=== PATIENT | female | born 2000 | race Hispanic/Latino ===

== ENCOUNTER 2022-10-01 00:02 | Emergency (ER) | payer BC ==
[~2022-10-01] VITALS: Ht 165.1 cm; Wt 83.9 kg
[2022-10-01] MEDS ORDERED: TRAMADOL HCL 50 MG TAB PO STA (00:11)
[2022-10-01] MEDS ORDERED: TRAMADOL HCL 50 MG TAB ONE (00:28)
[2022-10-01 01:01] VITALS: BP 130/90
== END 2022-10-01 01:02 | disposition home or self-care (01) ==
LOC: ER 00:08
DX: R50.9 Fever, unspecified (principal); S83.8X2A Sprain of other specified parts of left knee, initial encounter; S83.8X1A Sprain of other specified parts of right knee, initial encounter; S93.492A Sprain of other ligament of left ankle, initial encounter; S93.491A Sprain of other ligament of right ankle, initial encounter; W01.0XXA Fall on same level from slipping, tripping and stumbling without subsequent striking against object, initial encounter; Y93.01 Activity, walking, marching and hiking; Y92.89 Other specified places as the place of occurrence of the external cause
CPT/HCPCS: 99283